=== PATIENT | female | born 1955 | race Caucasian/White ===

== ENCOUNTER 2018-03-31 13:01 | Emergency (ER) | payer BC ==
[2018-03-31] MEDS ORDERED: Diphtheria,Pertussis(Acell),Tetanus Vaccine 0.5 ML SDV inactive IM ONE (14:45)
[2018-03-31 16:37] VITALS: BP 135/74
--- NOTE | 2018-03-31 16:56 | EDM.PDOC ---
ED HPI GENERAL MEDICAL PROBLEM - General Chief Complaint: Laceration Stated Complaint: laceration Time Seen by Provider: 03/31/18 14:05 Source of Information: Reports: Patient, RN History Limitations: Reports: No Limitations - History of Present Illness INITIAL COMMENTS - FREE TEXT/NARRATIVE: 62 yr female presents to ER with laceration to side of nose. [place] pt fell on ground and hit face on frozen ground. States no loss of conscious and was able to get up, apply a dressing to the area in the house and then went back outside to finish her chores. This happened around 11 am today. She is alert and talking. Sani is cleansing wound with Nacl and gauze pads. Right Bridge of Nose Pain Score (Numeric/FACES): 2 - Related Data Allergies Allergy/AdvReac Type Severity Reaction Status Date / Time bee venom protein (honey bee) Allergy Anaphylactic Verified 03/31/18 16:32 Shock Penicillins Allergy Hives Verified 03/31/18 16:32 prednisone Allergy Hives Verified 03/31/18 16:32 Sulfa (Sulfonamide Allergy Hives Verified 03/31/18 16:32 Antibiotics) Home Meds: Home Meds NK [No Known Home Meds] 04/05/15 [History] Past Medical History HEENT History: Reports: Impaired Vision Respiratory History: Reports: SOB Gastrointestinal History: Reports: Colon [employer] History: Reports: Musculoskeletal History: Reports: Arthritis, Fracture - Infectious Disease History Infectious Disease History: Reports: Chicken Pox, Influenza, Measles, Mumps - Past Surgical History GI Surgical History: Reports: Colonoscopy Social & Family History - Family History Family Medical History: Noncontributory ED ROS GENERAL - Review of Systems Review Of Systems: See Below Constitutional: Reports: No Symptoms HEENT: Reports: No Symptoms Respiratory: Reports: No Symptoms Cardiovascular: Reports: No Symptoms GI/Abdominal: Reports: No Symptoms Skin: Reports: Bruising (next to right eye), Wound (laceration to nose) Neurological: Reports: No Symptoms. Denies: Confusion, Dizziness Psychiatric: Reports: No Symptoms Hematologic/Lymphatic: Reports: No Symptoms Immunologic: Reports: No Symptoms ED EXAM, SKIN/RASH Exam: See Below Exam Limited By: No Limitations General Appearance: Alert, No Apparent Distress Ears: Hearing Grossly Normal Nose: Nasal Tenderness, Other (mild swelling to bridge of nose noted). No: Nasal Deformity Throat/Mouth: Normal Voice, No Airway Compromise Head: Atraumatic, Normocephalic Neck: Normal Inspection, Supple, Non-Tender, Full Range of Motion Respiratory/Chest: No Respiratory Distress, Lungs Clear, Normal Breath Sounds Cardiovascular: Regular Rate, Rhythm, No Edema Extremities: Normal Inspection, Normal Range of Motion, Non-Tender Neurological: Alert, Oriented, Normal Cognition Psychiatric: Normal Affect, Normal Mood Skin: Warm, Dry, Normal Color, Ecchymosis (small amount noted next to left eye.) Location, Skin: Other (right side of nose, laceration about 2 cm. Small 2-3 mm skin tear to left side of nose.) Associated features: Tenderness, Swelling (mild to bridge of nose) Course - Vital Signs Last Recorded V/S: Last Vital Signs Temp 98.2 F 03/31/18 14:26 Pulse 67 03/31/18 14:26 Resp 18 03/31/18 14:26 BP 135/74 03/31/18 14:26 Pulse Ox 100 03/31/18 14:26 - Orders/Labs/Meds Orders: Active Orders 24 hr Category Date Time Status Vaccines to be Administered [RC] PER UNIT ROUTINE Care 03/31/18 16:55 Active Meds: Medications Discontinued Medications Generic Name Dose Route Start Last Admin Trade Name Heidi PRN Reason Stop Dose Admin Diphtheria/Tetanus/Acell Pertussis 0.5 ml 03/31/18 14:45 03/31/18 14:45 Boostrix IM 03/31/18 14:46 0.5 ml .ONCE ONE Administration - Re-Assessments/Exams Free Text/Narrative Re-Assessment/Exam: 03/31/18 17:[address] Antonio of laceration. Examined wound, superficial skin tear and some scabbing to area. Edges well approximated and durabond applied to area and held in place until dried. Recommend no oint to area for at least 7 days. Wound should start healing within 3-5 days and durabond should dissolve by self and slough off of area. Keep area clean and dry. RTC if any symptoms of infection develop. Tdap to be given today. Discharge home to self care. Departure - Departure Time of Disposition: 14:50 Disposition: Home, Self-Care 01 Condition: Good Clinical Impression: Laceration - Discharge Information *PRESCRIPTION DRUG MONITORING PROGRAM REVIEWED*: Not Applicable *COPY OF PRESCRIPTION DRUG MONITORING REPORT IN PATIENT BEV: Not Applicable Instructions: Laceration Care, Adult, Tissue Adhesive Wound Care, [id number] Referrals: PCP,None [Primary Care Provider] - Forms: ED Department Discharge Additional Instructions: Glue will fall off in about 1 week. Monitor for signs of infection. Do not apply any ointment to wound. Do not get your face directly. No not rub or scrub the wound. - My Orders Last 24 Hours: My Active Orders 03/31/18 16:55 Vaccines to be Administered [RC] PER UNIT ROUTINE - Assessment/Plan Last 24 Hours: My Active Orders 03/31/18 16:55 Vaccines to be Administered [RC] PER UNIT ROUTINE Plan: Edges well approximated and durabond applied to area and held in place until dried. Recommend no oint to area for at least 7 days. Wound should start healing within 3-5 days and durabond should dissolve by self and slough off of area. Keep area clean and dry. RTC if any symptoms of infection develop. Tdap to be given today. Discharge home to self care.
== END 2018-03-31 14:50 | disposition home or self-care (01) ==
LOC: LB.ED 13:01
DX: S01.21XA Laceration without foreign body of nose, initial encounter (principal); S00.83XA Contusion of other part of head, initial encounter; Z23 Encounter for immunization; Z91.030 Bee allergy status; Z88.0 Allergy status to penicillin; Z88.2 Allergy status to sulfonamides; W19.XXXA Unspecified fall, initial encounter; W22.8XXA Striking against or struck by other objects, initial encounter; Y92.009 Unspecified place in unspecified non-institutional (private) residence as the place of occurrence of the external cause
CPT/HCPCS: 12011; 90471; 90715; 99282-25

== ENCOUNTER 2021-08-16 11:08 | Day surgery (SDC) | payer MEDICARE, BC ==
[~2021-08-16 11:08] MED LIST: Metoclopramide 10 MG/2 ML SDV IV PRN; Sodium Chloride 0.9% 1,000 ML IV SCH
[2021-08-16] MEDS ORDERED: Propofol 200 MG/20 ML SDV ONE (14:00)
[2021-08-16 14:34] VITALS: BP 157/94; PULSE 60
== END 2021-08-16 15:55 | disposition home or self-care (01) ==
LOC: LB.SDS 11:08
PROVIDERS: ATTEND Surgery
DX: Z12.11 Encounter for screening for malignant neoplasm of colon (principal); Z98.890 Other specified postprocedural states; Z86.010 Personal history of colon polyps
CPT/HCPCS: J2704; J7030